=== PATIENT | male | born 1990 | race African-American/Black ===

== ENCOUNTER 2019-08-20 15:00 | Emergency (ER) | payer SELFPAY ==
[~2019-08-20] VITALS: Ht 188 cm; Wt 74.1 kg
[2019-08-20 15:34] VITALS: BP 162/115
[2019-08-20] MEDS ORDERED: CEFTRIAXONE 250 MG IM ONE (16:00)
[2019-08-20] MEDS ORDERED: AZITHROMYCIN 500 MG TABLET PO ONE (16:00)
[2019-08-20 16:06] LABS: MICROSCOPIC AUTO
[2019-08-20 16:11] LABS: CULTURE INDICATED? YES
--- NOTE | 2019-08-20 17:20 | NUR ---
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
[2019-08-20] MEDS ORDERED: CEFTRIAXONE 250 MG ONE (17:28)
[2019-08-20] MEDS ORDERED: AZITHROMYCIN 250 MG TABLET ONE (17:28)
--- NOTE | 2019-08-20 17:29 | NUR ---
FIRST ENCOUNTER WITH PT: PT PRESENTED TO ED D/T GENITAL PAIN X2 DAYS. PT STATES BURSING AND "YELLOW" DISCHARGE PRESENT. PT DENIES FEVERS/CHILLS. DENIES N/V/D. STATES NEW PARTNER.
[2019-08-20] MEDS ORDERED: LISI-170 PO (17:30)
[2019-08-20] MEDS ORDERED: HYDR25TA6 PO (17:30)
--- NOTE | 2019-08-20 17:37 | NUR ---
ANGELES MARTINEZ AT BEDSIDE ADMINISTERING MEDICATION PER EMAR.
--- NOTE | 2019-08-20 18:22 | NUR ---
PT DC HOME IN A STABLE CONDITION. DC INSTRUCTIONS WERE DISCUSSED WITH PT. PT VERBALIZED UNDERSTANDING. NO FURTHER QUESTIONS OR CONCERNS EXPRESSED AT THAT TIME. PT AMBULATED OUT OF ED WITH A STEADY GAIT.
== END 2019-08-20 18:23 | disposition home or self-care (01) ==
LOC: ED 17:30
DX: N34.2 Other urethritis (principal); I10 Essential (primary) hypertension
CPT/HCPCS: 81001; 87086; 87491; 87591; 96372; 99283; J0696

== ENCOUNTER 2019-10-22 10:25 | Emergency (ER) | payer SELFPAY ==
[~2019-10-22] VITALS: Ht 188 cm; Wt 70.7 kg
[~2019-10-22 10:25] MED LIST: HYDR25TA6 PO; LISI-170 PO
[2019-10-22 10:29] VITALS: BP 140/103
[2019-10-22] MEDS ORDERED: MECLIZINE CHEWABLE 25 MG TAB ONE (11:16)
[2019-10-22] MEDS ORDERED: ONDANSETRON ODT 4 MG ONE (11:16)
[2019-10-22 11:28] LABS: BASOPHILS # (AUTO) 0.03 x10^3/uL (0-0.1); BASOPHILS % (AUTO) 1 % (0-1); EOSINOPHILS # (AUTO) 0.06 x10^3/uL (0-0.4); EOSINOPHILS % (AUTO) 1 % (1-7); LYMPHOCYTES # (AUTO) 1.75 x10^3/uL (1-3.4); LYMPHOCYTES % (AUTO) 38 % (22-44); MD NO; MEAN CORPUSCULAR HEMOGLOBIN 31.9 pg (27.5-34.5); MEAN CORPUSCULAR HGB CONC 33.9 g/dL (33.2-36.2); MEAN CORPUSCULAR VOLUME 94.2 fL (81-97); MEAN PLATELET VOLUME 7.6 fL (7.4-10.4); MONOCYTES # (AUTO) 0.26 x10^3/uL (0.2-0.8); MONOCYTES % (AUTO) 6 % (2-9); NEUTROPHILS % (AUTO) 54 % (42-75); PLATELET COUNT 362 x10^3/uL (130-400); RED BLOOD COUNT 4.75 x10^6/uL (4.38-5.82); RED CELL DISTRIBUTION WIDTH 13.9 % (9.4-14.8)
[2019-10-22] MEDS ORDERED: MECLIZINE CHEWABLE 25 MG TAB PO ONE (11:30)
[2019-10-22] MEDS ORDERED: ONDANSETRON ODT 4 MG PO ONE ×3 (11:30)
[2019-10-22] MEDS ORDERED: ONDANSETRON 2MG/ML, 2ML IVPush ONE (11:30)
[2019-10-22] MEDS ORDERED: SODIUM CHLORIDE FLUSH 10ML SYR IVF ONE (11:30)
--- NOTE | 2019-10-22 11:42 | NUR ---
PT REQUESTS PO MEDS AT THSI TIME. PROVIDER MADE AWARE. PT WOULD LIKE TO HOLD OFF ON IV UNTIL ABSOLUTE NEED FOR ONE.
[2019-10-22 11:49] LABS: ALBUMIN 4.1 g/dL (3.4-5.0); ANION GAP 4 mmol/L (5-15); CALCIUM 9.3 mg/dL (8.5-10.1); CHLORIDE 107 mmol/L (98-107)
== END 2019-10-22 12:36 | disposition home or self-care (01) ==
LOC: ED 10:48
DX: R42 Dizziness and giddiness (principal); I10 Essential (primary) hypertension; R94.31 Abnormal electrocardiogram [ECG] [EKG]
CPT/HCPCS: 36415; 80048; 82040; 85025; 93005; 99284; Q0162